=== PATIENT | female | born 1945 | race Caucasian/White ===

== ENCOUNTER 2020-05-24 11:25 | Day surgery (SDC) | payer MEDICARE ==
[~2020-05-24] VITALS: Ht 167.6 cm; Wt 77.0 kg
[2020-05-24] MEDS ORDERED: VISIPAQUE 270 MG/ML, 50ML BOTTLE ONE (12:00)
[2020-05-24 12:04] VITALS: BP 167/91
[2020-05-24] MEDS ORDERED: LACTATED RINGERS 1,000 ML IV SCH (12:30)
[2020-05-24 12:42] LABS: BASOPHILS % (AUTO) 1 % (0-1); EOSINOPHILS % (AUTO) 1 % (1-7); LYMPHOCYTES % (AUTO) 31 % (22-44); MEAN CORPUSCULAR HEMOGLOBIN 31.3 pg (27.0-34.8); MEAN CORPUSCULAR HGB CONC 34.4 g/dL (32.4-35.8); MEAN PLATELET VOLUME 7.4 fL (7.4-10.4); MONOCYTES % (AUTO) 7 % (2-9); NEUTROPHILS % (AUTO) 60 % (42-75); PLATELET COUNT 334 x10^3/uL (130-400); RED BLOOD COUNT 4.28 x10^6/uL (3.82-5.3); RED CELL DISTRIBUTION WIDTH 13.4 % (9.6-15.2)
[2020-05-24 12:52] LABS: ANION GAP 6 mmol/L (5-15); CHLORIDE 102 mmol/L (98-107); CREATININE 0.84 mg/dL (0.55-1.02)
[2020-05-24 12:54] LABS: MD NO
[2020-05-24] MEDS ORDERED: LIDOCAINE 1%, 10ML ONE (13:59)
[2020-05-24] MEDS ORDERED: FLUMAZENIL 0.1 MG/1 ML, 5ML ONE (14:03)
[2020-05-24] MEDS ORDERED: MIDAZOLAM 1 MG/ML, 5ML ONE (14:03)
[2020-05-24] MEDS ORDERED: FENTANYL PF 100 MCG/2ML ONE (14:03)
[2020-05-24] MEDS ORDERED: HEPARIN 1,000 UNITS/ML, 10ML ONE (14:03)
[2020-05-24] MEDS ORDERED: NALOXONE 1 MG/ML, 2ML ONE (14:03)
[2020-05-24] MEDS ORDERED: PROTAMINE SULFATE 10 MG/ML, 25ML ONE (14:04)
[2020-05-24] MEDS ORDERED: CLOP75TA PO (16:55)
[2020-05-24] MEDS ORDERED: ASPI81TA45 PO (16:55)
[2020-05-24] MEDS ORDERED: SODIUM CHLORIDE 0.9% 1,000 ML IV SCH (17:00)
[2020-05-24] MEDS ORDERED: CLOPIDOGREL 75 MG TABLET PO ONE (17:30)
[2020-05-24] MEDS ORDERED: OXYcodone/APAP 5/325MG TABLET PO ONE (17:30)
[2020-05-24] MEDS ORDERED: OXYcodone/APAP 5/325MG TABLET ONE (17:37)
[2020-05-24] MEDS ORDERED: TICAGRELOR 90 MG TABLET PO SCH (21:00)
[2020-05-25] MEDS ORDERED: ASPIRIN 81 MG TABLET EC PO SCH (09:00)
[2020-05-25] MEDS ORDERED: CLOPIDOGREL 75 MG TABLET PO SCH (09:00)
== END 2020-05-24 18:40 | disposition home or self-care (01) ==
LOC: OUT 11:25 → ORIP 17:40 → UNDOADMOB 17:40 → ORIP 18:40 → UNDODISOB 18:40
PROVIDERS: ATTEND Surgery
DX: I70.212 Atherosclerosis of native arteries of extremities with intermittent claudication, left leg (principal); E11.621 Type 2 diabetes mellitus with foot ulcer; L97.422 Non-pressure chronic ulcer of left heel and midfoot with fat layer exposed; Z79.84 Long term (current) use of oral hypoglycemic drugs; Z79.899 Other long term (current) drug therapy; Z87.891 Personal history of nicotine dependence; Z98.890 Other specified postprocedural states; Z79.82 Long term (current) use of aspirin
CPT/HCPCS: 36415; 37225; 75625; 75716; 76937; 80048; 85025; C1714; C1751; C1760; C1769; C1884; C1894; C2623; J1644; J2250; J3010; Q9966; 75630; J2720; G0378; J2310